=== PATIENT | male | born 1935 ===

== ENCOUNTER → 2021-07-26 | Outpatient (CLI) | payer OTHER, MEDICARE ==
[~2021-07-26] VITALS: Ht 154.9 cm; Wt 52.9 kg
[~2021-07-26] MED LIST: ASPIRIN EC81 M1 PO; AZELASTINE205.5 MCG/ NARES; CALCIUM 500-VI1 EAC1 PO; CALCIUM-MAGNES1 EACH PO; CARVEDILOL25 MG PO; FERROUS GLUCON324 M2 PO; GLUCOSAMINE1000 MG PO; HYDROCODON-ACE1 EAC7 PO; LIPITOR 20 MG T20 M1 PO; MULTI VITAMIN1 EACH PO; OMEPRAZOLE10 MG PO; RESTORIL15 M1 PO; TRAMADOL HCL50 MG PO; TYLENOL 8 HOUR650 MG PO; VASOTEC5 MG PO; ZETIA10 MG PO
[2021-07-26 13:16] VITALS: BP 153/81
--- NOTE | 2021-07-26 13:32 | NUR ---
Pain Clinic Assessment: 1. History of Osteoarthritis: RIGHT SHOULDER History of Rheumatoid Arthritis: Not Applicable 2. Height: 5 ft. 1 in. 154.9 cm. Weight: 116.6 lb. oz. 52.889 kg. Patient's BMI: 22.0 3. Vital Signs: BP: 153/81 Pulse: 70 Resp: 14 Temp: 02 Sat: 100 ECG Mon: 4. Pain Intensity: 6 5. Fall Risk: Dizziness: N Needs help standing or walking: N Fallen in the last 3 months: N Fall risk comments: 6. Patient on Blood Thinner: None 7. History of Hypertension: Y 8. Opioid Therapy greater than 6 weeks: Opiate Contract Signed: 9. Risk Assessment Tool Provided: 0 LOW RISK 10. Functional Assessment Tool: 11. Recreational Drug Use: Never Drug Type: Tobacco Use: Former Smoker Tobacco Type: Cigarettes Amount or Packs/day: How Many Years: Alcohol Use: No Frequency: Quant:
== END ==
LOC: PAIN 08:23
PROVIDERS: ATTEND Anesthesiology Pain Medicine
DX: M47.816 Spondylosis without myelopathy or radiculopathy, lumbar region (principal); M41.86 Other forms of scoliosis, lumbar region; M43.8X6 Other specified deforming dorsopathies, lumbar region; Z79.82 Long term (current) use of aspirin; Z79.899 Other long term (current) drug therapy

== ENCOUNTER → 2021-08-09 | Outpatient (CLI) | payer OTHER, MEDICARE ==
[~2021-08-09] VITALS: Ht 154.9 cm; Wt 55.1 kg
[~2021-08-09] MED LIST changes: +FLOMAX0.4 MG PO; +GLUCOSAMINE &1 EACH PO
[2021-08-09 13:31] VITALS: BP 141/85
--- NOTE | 2021-08-09 13:39 | NUR ---
Pain Clinic Assessment: 1. History of Osteoarthritis: RIGHT SHOULDER History of Rheumatoid Arthritis: Not Applicable 2. Height: 5 ft. 1 in. 154.9 cm. Weight: 121.4 lb. oz. 55.067 kg. Patient's BMI: 23.0 3. Vital Signs: BP: 141/85 Pulse: 70 Resp: 16 Temp: 02 Sat: 98 ECG Mon: 4. Pain Intensity: 5 5. Fall Risk: Dizziness: N Needs help standing or walking: N Fallen in the last 3 months: N Fall risk comments: 6. Patient on Blood Thinner: None 7. History of Hypertension: Y 8. Opioid Therapy greater than 6 weeks: Opiate Contract Signed: 9. Risk Assessment Tool Provided: 0 LOW RISK 10. Functional Assessment Tool: 11. Recreational Drug Use: Never Drug Type: Tobacco Use: Former Smoker Tobacco Type: Amount or Packs/day: How Many Years: Alcohol Use: No Frequency: Quant:
== END ==
LOC: PAIN 12:39
PROVIDERS: ATTEND Anesthesiology Pain Medicine
DX: M41.80 Other forms of scoliosis, site unspecified (principal); M54.50 Low back pain, unspecified; Z79.82 Long term (current) use of aspirin; Z79.899 Other long term (current) drug therapy

== ENCOUNTER → 2021-08-23 | Outpatient (CLI) | payer OTHER, MEDICARE ==
[~2021-08-23] VITALS: Ht 154.9 cm; Wt 54.8 kg
[2021-08-23 15:54] VITALS: BP 166/95
--- NOTE | 2021-08-23 16:04 | NUR ---
Pain Clinic Assessment: 1. History of Osteoarthritis: RIGHT SHOULDER History of Rheumatoid Arthritis: Not Applicable 2. Height: 5 ft. 1 in. 154.9 cm. Weight: 120.8 lb. oz. 54.794 kg. Patient's BMI: 22.8 3. Vital Signs: BP: 166/95 Pulse: 71 Resp: 14 Temp: 02 Sat: 99 ECG Mon: 4. Pain Intensity: 4 5. Fall Risk: Dizziness: N Needs help standing or walking: N Fallen in the last 3 months: N Fall risk comments: 6. Patient on Blood Thinner: None 7. History of Hypertension: Y 8. Opioid Therapy greater than 6 weeks: Opiate Contract Signed: 9. Risk Assessment Tool Provided: 0 LOW RISK 10. Functional Assessment Tool: 11. Recreational Drug Use: Never Drug Type: Tobacco Use: Former Smoker Tobacco Type: Amount or Packs/day: How Many Years: Alcohol Use: No Frequency: Quant:
== END ==
LOC: PAIN 11:06
PROVIDERS: ATTEND Anesthesiology Pain Medicine
DX: G89.29 Other chronic pain (principal); M41.9 Scoliosis, unspecified; Z79.82 Long term (current) use of aspirin; Z79.899 Other long term (current) drug therapy

== ENCOUNTER → 2021-11-22 | Outpatient (CLI) | payer OTHER, MEDICARE ==
[~2021-11-22] VITALS: Ht 154.9 cm; Wt 53.6 kg
[2021-11-22 10:43] VITALS: BP 169/98
--- NOTE | 2021-11-22 11:00 | NUR ---
Pain Clinic Assessment: 1. History of Osteoarthritis: RIGHT SHOULDER History of Rheumatoid Arthritis: Not Applicable 2. Height: 5 ft. 1 in. 154.9 cm. Weight: 118.2 lb. oz. 53.615 kg. Patient's BMI: 22.3 3. Vital Signs: BP: 169/98 Pulse: 70 Resp: 14 Temp: 02 Sat: 100 ECG Mon: 4. Pain Intensity: 4 TO 7 5. Fall Risk: Dizziness: N Needs help standing or walking: N Fallen in the last 3 months: N Fall risk comments: 6. Patient on Blood Thinner: None 7. History of Hypertension: Y 8. Opioid Therapy greater than 6 weeks: Opiate Contract Signed: 9. Risk Assessment Tool Provided: 0 LOW RISK 10. Functional Assessment Tool: 11. Recreational Drug Use: Never Drug Type: Tobacco Use: Former Smoker Tobacco Type: Amount or Packs/day: How Many Years: Alcohol Use: No Frequency: Quant:
== END ==
LOC: PAIN 07:17
PROVIDERS: ATTEND Anesthesiology Pain Medicine
DX: G89.29 Other chronic pain (principal); M19.011 Primary osteoarthritis, right shoulder; I10 Essential (primary) hypertension; M41.9 Scoliosis, unspecified; Z79.899 Other long term (current) drug therapy; Z79.891 Long term (current) use of opiate analgesic; Z79.82 Long term (current) use of aspirin; Z87.891 Personal history of nicotine dependence